=== PATIENT | male | born 1970 | race Caucasian/White ===

== ENCOUNTER 2022-08-20 20:59 | Inpatient (IN) | payer MEDICAID, SELFPAY ==
[2022-08-20 20:59] VITALS: BP 153/93; PULSE 83; RESP 15; TEMP 36.2; O2SAT 100; BMI 26.2
--- NOTE | 2022-08-20 21:19 | EX.ED.SAOD ---
HPI History of Present Illness Chief Complaint: Substance Abuse Informant: patient Narrative Narrative: Patient seeking detox from alcohol, opiates which she smokes or snorts, and anything else that he can stop such as methamphetamine which he also uses frequently 2. He uses about a liter of alcohol/bourbon per day, he is also using a gram or so of heroin/fentanyl what ever is in it per day, the last use was this morning he feels like he is with withdrawal with cramping in his abdomen nausea and anxiety. [facility] Medical History Alcohol abuse Anxiety Depression GERD (gastroesophageal reflux disease) Hepatitis Hypertension Migraines Smoker Substance abuse Home Medications Blood Pressure Med 08/20/22 [History Last Taken Unknown] buprenorphine HCl 8 mg sublingual tablet 8 mg sublingual BID 08/20/22 [History Last Taken Unknown] quetiapine 25 mg tablet (Seroquel) 25 mg PO QHS 08/20/22 [History Last Taken Unknown] Allergy/AdvReac Type Severity Reaction Status Date / Time hydromorphone [From Dilaudid] Allergy Hives Verified 08/20/22 21:02 Surgical History (Updated 08/20/22 @ 21:09 by Clemencia Driscoll) H/O left wrist surgery History of appendectomy Social History Smoking Status: Current every day smoker tobacco type: cigarettes ROS ROS ED Constitutional Constitutional ED: Denies chills or fever(s) Eyes Eyes: Denies change in vision or diplopia ENT ENT ED: Denies rhinorrhea or sore throat Cardiovascular Cardiovascular: Denies chest pain or palpitations Respiratory/Chest Respiratory/Chest: Denies cough or dyspnea Gastrointestinal Gastrointestinal: Reports abdominal pain and nausea; Denies diarrhea or vomiting Genitourinary Genitourinary ED: Denies dysuria or hematuria Musculoskeletal Musculoskeletal: Denies back pain or neck pain Integumentary Denies abscess or rash Neurologic Neurologic: Denies headache(s), paresthesias or weakness Psychiatric Psychiatric: Reports anxiety; Denies suicidal thoughts EXAM Physical Exam Const Vital Signs: 08/20/22 20:59 Temperature 97.1 F L Temperature Source Temporal Pulse Rate 83 Respiratory Rate 15 Blood Pressure 153/93 H Blood Pressure Mean 113 Pulse Ox 100 Oxygen Delivery Method Room Air Positive well nourished and well developed Constitutional Narrative: A little anxious but otherwise well-appearing General Appearance ED: well developed and NAD HEENT Reports moist mucous membranes normocephalic and atraumatic Eyes PERRL and EOMs intact bilaterally Neck full ROM and supple Resp normal respiratory effort and clear to auscultation bilaterally Cardio regular rate, regular rhythm and no murmurs GI non-tender and non-distended Auscultation: normoactive bowel sounds Palpation: soft Back/Spine no CVA tenderness General Back: other FROM Extremity normal to inspection General Extremety ED: Negative for edema, pulses abnormal or tenderness General Extremity: Negative for edema or pulses abnormal Neuro oriented x3, CN's II-XII intact bilaterally and no sensory deficits noted Sensorium / Orientation: awake and alert Motor Exam: strength 5/5 throughout Skin no rashes or lesions noted and no wounds MDM MDM MDM Narrative Medical decision making narrative: Patient given Zofran and phenobarbital for his withdrawal symptoms, labs noted, will discuss with hospitalist for detox admission. Lab Data Attestation: I reviewed the patient's lab results. Labs: Laboratory Results - last 24 hr 08/20/22 08/20/22 08/20/22 21:32 21:32 21:32 WBC 8.0 RBC 4.05 L Hgb 13.1 Hct 39.9 L MCV 98.5 H MCH 32.3 H MCHC 32.8 RDW Std Deviation 47.0 H RDW Coeff of Isabella 13.0 Plt Count 213 MPV 9.9 Immature Gran % (Auto) 0.100 Neut % (Auto) 50.4 Lymph % (Auto) 37.1 [place] % (Auto) 6.7 Eos % (Auto) 4.6 Baso % (Auto) 1.1 H Absolute Neuts (auto) 4.1 Absolute Lymphs (auto) 2.98 Nucleated RBC % 0 PT 12.7 INR 1.0 Sodium 139 Potassium 3.5 Chloride 105 Carbon Dioxide 28.0 Anion Gap 6 BUN 25 H Creatinine 0.84 Estim Creat Clear Calc 98.39 Est GFR (MDRD) Af Amer 123 Est GFR (MDRD) Non-Af 102 BUN/Creatinine Ratio 29.8 H Glucose 87 Calcium 9.0 Total Bilirubin 0.30 AST 72 H ALT 115 H Alkaline Phosphatase 116 Total Protein 7.3 Albumin 3.7 Globulin 3.6 Albumin/Globulin Ratio 1.0 Urine Opiates Screen Urine Methadone Screen Ur Barbiturates Screen Ur Phencyclidine Scrn Ur Amphetamines Screen MDMA (Ecstasy) Screen U Benzodiazepines Scrn Urine Cocaine Screen U Cannabinoids Screen Ur Drug Screen Comment Ethyl Alcohol 08/20/22 08/20/22 21:32 21:32 WBC RBC Hgb Hct MCV MCH MCHC RDW Std Deviation RDW Coeff of Isabella Plt Count MPV Immature Gran % (Auto) Neut % (Auto) Lymph % (Auto) [place] % (Auto) Eos % (Auto) Baso % (Auto) Absolute Neuts (auto) Absolute Lymphs (auto) Nucleated RBC % PT INR Sodium Potassium Chloride Carbon Dioxide Anion Gap BUN Creatinine Estim Creat Clear Calc Est GFR (MDRD) Af Amer Est GFR (MDRD) Non-Af BUN/Creatinine Ratio Glucose Calcium Total Bilirubin AST ALT Alkaline Phosphatase Total Protein Albumin Globulin Albumin/Globulin Ratio Urine Opiates Screen NEGATIVE Urine Methadone Screen NEGATIVE Ur Barbiturates Screen NEGATIVE Ur Phencyclidine Scrn NEGATIVE Ur Amphetamines Screen POSITIVE H MDMA (Ecstasy) Screen NEGATIVE U Benzodiazepines Scrn NEGATIVE Urine Cocaine Screen NEGATIVE U Cannabinoids Screen POSITIVE H Ur Drug Screen Comment Ethyl Alcohol 48.0 Management Discussion w/another healthcare provider: Hospitalist Discharge Plan Dx/Rx/DC Orders Clinical Impression: Opiate dependence, Alcohol dependence, Opiate withdrawal, Polysubstance abuse Disposition Disposition: Acute Care Hospital [facility]
[2022-08-20] MEDS: Ondansetron 4 MG/2 ML Vial IV (21:39)
[2022-08-20 21:45] LABS: Absolute Lymphocyte Count 2.98 X10^3/uL (0.83-4.51); Absolute Neutrophil Count 4.1 X10^3/uL (2.0-7.7); Basophil# 0.09 X10^3/uL; Basophil% 1.1 % (0-1); Eosinophil# 0.37 X10^3/uL; Eosinophils% 4.6 % (0-5); Hematocrit 39.9 % (40-54); Hemoglobin 13.1 g/dL (13.0-16.5); Lymphocyte # 2.98 X10^3/ul (0.83-4.51); Lymphocyte % 37.1 % (19-41); Mean Corp Hgb Conc 32.8 g/dL (32-36); Mean Corpuscular Hgb 32.3 pg (27.0-32.0); Mean Corpuscular Volume 98.5 fL (80-94); Mean Platelet Vol. 9.9 fl (6.2-12.0); Monocyte# 0.54 X10^3/uL; Monocyte% 6.7 % (0-10); NRBC Flagged by Analyzer 0 % (0-5); Neutrophil # 4.05 X10^3/uL (2.7-7.7); Neutrophil % 50.4 % (47-70); Platelet Count 213 K/mm3 (150-450); Red Blood Count 4.05 M/mm3 (4.6-6.2)
[2022-08-20 21:52] LABS: Prothrombin Time (Protime)PT. 12.7 SECONDS (11.7-14.9)
[2022-08-20 22:00] LABS: AST(SGOT) 72 U/L (15-37); Alanine Aminotransfer ALT/SGPT 115 U/L (16-61); Albumin, Serum 3.7 g/dL (3.2-5.0); Alkaline Phosphatase 116 U/L (45-117); Anion Gap 6 (5-15); BUN 25 mg/dL (7-18); BUN/Creat Ratio 29.8 RATIO (10-20); Chloride 105 mmol/L (98-107); Creatinine, Serum 0.84 mg/dL (0.70-1.30); EST Glomerular Filtration Rate 102 mL/min (>60); Est Glom Filt Rate - Afr Amer 123 mL/min (>60); Estimated Creatinine Clearance 98.39 ml/min; Globulin 3.6 g/dL (2.2-4.2); Glucose 87 mg/dL (74-106); Potassium 3.5 mmol/L (3.5-5.1); Protein, Total 7.3 g/dL (6.4-8.2); Sodium Level 139 mmol/L (136-145)
[2022-08-20 22:06] LABS: Amphetamine Urine VISTA POSITIVE (<1000 ng/mL); Barbiturate Urine VISTA NEGATIVE (< 200 ng/mL); Benzodiazepine Urine VISTA NEGATIVE (< 200 ng/mL); Cocaine Urine VISTA NEGATIVE (< 300 ng/mL); Ecstacy Urine VISTA NEGATIVE (< 500 ng/mL); Methadone Urine VISTA NEGATIVE (< 300 ng/mL); PCP Urine VISTA NEGATIVE (< 25 ng/mL); THC Urine VISTA POSITIVE (< 50 ng/mL); Vista UDS pH Range 6
[2022-08-20 22:31] VITALS: BP 148/90; PULSE 78; RESP 18; TEMP 36.2; O2SAT 100
--- NOTE | 2022-08-20 22:31 | PCM.HP.STD ---
HPI - General General Date of Admission: 08/20/22 Date of Service: 08/20/22 Chief Complaint: Desire for detoxification HPI Narrative DEJA HOLDEN, is a 52 M with a significant history of tobacco abuse and multi substance abuse who presents to the emergency department for help with detoxification. Patient has been using multiple substances. Alcohol use: Reportedly he has been using a liter of bourbon daily. The last time he used was about 5 before presentation. Reportedly he has been using for many years; more than 10 years. Opioid abuse: Reportedly he has been smoking fentanyl. He has been smoking fentanyl for a long time. He smokes about 1 g/day. Last time he used was about 5 days before presentation. Methamphetamine: He has been smoking with methamphetamine reportedly for him a long time. He smokes about half grams per day. And again last time he used methamphetamine was about 5 before presentation. Tobacco abuse: He smokes about a pack per day of cigarettes. He reports withdrawal symptoms of feeling cold; abdominal pain; and restless legs. He denies any nausea or vomiting. Patient reports not been able to obtain his right hand. He attributes to lying wrongly on his right hand [facility] Medical History Alcohol abuse Anxiety Depression GERD (gastroesophageal reflux disease) Hepatitis Hypertension Migraines Smoker Substance abuse Home Medications Blood Pressure Med 08/20/22 [History Last Taken Unknown] buprenorphine HCl 8 mg sublingual tablet 8 mg sublingual BID 08/20/22 [History Last Taken Unknown] quetiapine 25 mg tablet (Seroquel) 25 mg PO QHS 08/20/22 [History Last Taken Unknown] Allergy/AdvReac Type Severity Reaction Status Date / Time hydromorphone [From Dilaudid] Allergy Hives Verified 08/20/22 21:02 Family History Other Cancer Surgical History H/O left wrist surgery History of appendectomy Social History Smoking Status: Current every day smoker tobacco type: cigarettes ROS ROS Narrative Pertinent positives and pertinent negatives as noted in HPI. All other systems were reviewed and are negative Vital Signs Vital Signs Vital Signs: 08/20/22 20:59 Temperature 97.1 F L Temperature Source Temporal Pulse Rate 83 Respiratory Rate 15 Blood Pressure 153/93 H Blood Pressure Mean 113 Pulse Ox 100 Oxygen Delivery Method Room Air Weight Weight: 78.199 kg Body Mass Index (BMI) 26.2 Physical Exam Narrative Physical exam: General: Well-nourished, well-developed. Head: Normocephalic, atraumatic, no tenderness Eyes: Vision is grossly intact. EOMI ENT, no trauma, moist mucous membranes, no rhinorrhea Neck: Nontender, No thyromegaly. CVS: Regular rate and rhythm. S1-S2 present. No murmur, gallop or rub. Respiratory : clear to auscultation bilaterally, chest wall nontender Abdomen: Soft, nontender, nondistended, normal bowel sounds, no masses : Deferred Back: Nontender, no CVA tenderness, no midline spinal tenderness, deformities, step-offs Extremities: Unable to fully extend right that he attributes to pain. Able to fully extend his left pound Skin: Normal color, no trauma, abrasions Neuro: Alert, oriented, cranial nerves II through XII grossly intact. Psychiatry: Normal mood. Normal affect. Not depressed. Not anxious. Results Lab / Micro Data Result Diagrams: 08/20/22 21:32 08/20/22 21:32 Labs: Laboratory Results - last 24 hr 08/20/22 21:32: WBC 8.0, RBC 4.05 L, Hgb 13.1, Hct 39.9 L, MCV 98.5 H, MCH 32.3 H, MCHC 32.8, RDW Std Deviation 47.0 H, RDW Coeff of Isabella 13.0, Plt Count 213, MPV 9.9, Immature Gran % (Auto) 0.100, Neut % (Auto) 50.4, Lymph % (Auto) 37.1, [place] % (Auto) 6.7, Eos % (Auto) 4.6, Baso % (Auto) 1.1 H, Absolute Neuts (auto) 4.1, Absolute Lymphs (auto) 2.98, Nucleated RBC % 0 08/20/22 21:32: PT 12.7, INR 1.0 08/20/22 21:32: Sodium 139, Potassium 3.5, Chloride 105, Carbon Dioxide 28.0, Anion Gap 6, BUN 25 H, Creatinine 0.84, Estim Creat Clear Calc 98.39, Est GFR (MDRD) Af Amer 123, Est GFR (MDRD) Non-Af 102, BUN/Creatinine Ratio 29.8 H, Glucose 87, Calcium 9.0, Total Bilirubin 0.30, AST 72 H, ALT 115 H, Alkaline Phosphatase 116, Total Protein 7.3, Albumin 3.7, Globulin 3.6, Albumin/Globulin Ratio 1.0 08/20/22 21:32: Ethyl Alcohol 48.0 08/20/22 21:32: Urine Opiates Screen NEGATIVE, Urine Methadone Screen NEGATIVE, Ur Barbiturates Screen NEGATIVE, Ur Phencyclidine Scrn NEGATIVE, Ur Amphetamines Screen POSITIVE H, MDMA (Ecstasy) Screen NEGATIVE, U Benzodiazepines Scrn NEGATIVE, Urine Cocaine Screen NEGATIVE, U Cannabinoids Screen POSITIVE H, Ur Drug Screen Comment Assessment & Plan Assessment/Plan (1) Opiate dependence: (2) Alcohol dependence: (3) Polysubstance abuse: PLAN: Plan Alcohol dependence and desire for detoxification Patient be started on phenobarbital and other adjunctive medications: Gabapentin as needed; dicyclomine as needed; Vistaril as needed; Imodium as needed; trazodone as needed; Zofran as needed; scheduled thiamine; and schedule folic acid. Monitor CIWA score Opioid dependence and withdrawal Patient be started on Subutex and other adjunctive medications: Gabapentin as needed; dicyclomine as needed; Vistaril as needed; methocarbamol as needed; clonidine as needed; Imodium as needed; trazodone as needed and Zofran as needed. Monitor COWS and CINA score Methamphetamine abuse Urine drug screen is positive for amphetamines and cannabinoids Counseled Tobacco abuse Counseled Declines prescribed. DVT prophylaxis Low risk Encourage to ambulate Charges/Coding Visit Charges Inpatient E&M: 66227 Init Hosp L2
[2022-08-20] MEDS: Phenobarbital Sodium 130 MG/ML Vial 260 MG IV (22:46)
[2022-08-20 23:49] VITALS: BMI 23.7
[2022-08-21] VITALS (21 sets, daily range): BP systolic 75–164; BP diastolic 57–108; PULSE 56–88; RESP 15–22; TEMP 36.1–37.3; O2SAT 94–100; BMI 23.6
[2022-08-21] MEDS: QUEtiapine 25 MG Tablet PO ×3 (01:15→20:54)
[2022-08-21] MEDS: Phenobarbital 32.4 MG Tablet 64.8 MG PO ×6 (01:15→20:54)
[2022-08-21] MEDS: Buprenorphine HCl 2 MG TAB.SUBL SL ×3 (04:26→18:15)
[2022-08-21] MEDS: hydrOXYzine PAM 25 MG Capsule 50 MG PO (04:28)
[2022-08-21] MEDS: Gabapentin 300 MG Capsule PO (06:15)
[2022-08-21] MEDS: cloNIDine HCl 0.1 MG Tablet PO (06:15)
[2022-08-21] MEDS: Methocarbamol 750 MG Tablet 1500 MG PO (06:15)
[2022-08-21] MEDS: LORazepam 2 MG/ML Syringe IV ×4 (06:40→12:43)
[2022-08-21] MEDS: 0.9% Saline Lock 10 ML Syringe IV ×4 (06:40→10:38)
--- NOTE | 2022-08-21 07:18 | PCM.PN.HOSP ---
Reason for Visit Reason for Visit: Acute Alcohol Withdrawal/Acute Opiate Withdrawal Subjective Subjective Mr. Hi is a 52-year-old white male who presented to the emergency department [facility] on 08/20/2022 desiring detox from alcohol and opiates. Per documentation, he has been using approximately 1 L of bourbon a day. He has been drinking for more than 10 years. With regards to his opiate abuse, he has been smoking fentanyl. He indicated he been doing this for a long time and smokes about 1 g a day. Patient also admits to methamphetamine use and tobacco abuse. Symptoms at presentation included feeling cold, abdominal pain, and restlessness. He denies any nausea vomiting or diarrhea. Is extremely restless and agitated. He is alert and oriented x3 however his speech is somewhat garbled. He was able to do simple computations such as 4+4 accurately at the time of my evaluation. Unfortunately he has remained very restless despite as needed Ativan using and dosing of his phenobarb and will require transfer to the ICU for Precedex drip. Objective Data Objective Data Vital Signs: Vital Signs Temp Pulse Resp BP Pulse Ox O2 Del Method 97.5 F L 56 L 16 139/90 H 100 Room Air 08/21/22 04:34 08/21/22 04:34 08/21/22 04:34 08/21/22 04:34 08/21/22 04:34 08/21/22 04:34 Oxygen Delivery Method Room Air Weight: 70.6 kg Body Mass Index (BMI) 23.6 Intake & Output: Intake and Output for Last 24 Hours 08/19/22 08/20/22 08/21/22 23:59 23:59 23:59 Intake Total 400 / 400 Balance 400 / 400 Lab / Micro Data Result Diagrams: 08/20/22 21:32 08/20/22 21:32 Labs: Laboratory Results - last 24 hr 08/20/22 21:32: WBC 8.0, RBC 4.05 L, Hgb 13.1, Hct 39.9 L, MCV 98.5 H, MCH 32.3 H, MCHC 32.8, RDW Std Deviation 47.0 H, RDW Coeff of Isabella 13.0, Plt Count 213, MPV 9.9, Immature Gran % (Auto) 0.100, Neut % (Auto) 50.4, Lymph % (Auto) 37.1, [place] % (Auto) 6.7, Eos % (Auto) 4.6, Baso % (Auto) 1.1 H, Absolute Neuts (auto) 4.1, Absolute Lymphs (auto) 2.98, Nucleated RBC % 0 08/20/22 21:32: PT 12.7, INR 1.0 08/20/22 21:32: Sodium 139, Potassium 3.5, Chloride 105, Carbon Dioxide 28.0, Anion Gap 6, BUN 25 H, Creatinine 0.84, Estim Creat Clear Calc 98.39, Est GFR (MDRD) Af Amer 123, Est GFR (MDRD) Non-Af 102, BUN/Creatinine Ratio 29.8 H, Glucose 87, Calcium 9.0, Total Bilirubin 0.30, AST 72 H, ALT 115 H, Alkaline Phosphatase 116, Total Protein 7.3, Albumin 3.7, Globulin 3.6, Albumin/Globulin Ratio 1.0 08/20/22 21:32: Ethyl Alcohol 48.0 08/20/22 21:32: Urine Opiates Screen NEGATIVE, Urine Methadone Screen NEGATIVE, Ur Barbiturates Screen NEGATIVE, Ur Phencyclidine Scrn NEGATIVE, Ur Amphetamines Screen POSITIVE H, MDMA (Ecstasy) Screen NEGATIVE, U Benzodiazepines Scrn NEGATIVE, Urine Cocaine Screen NEGATIVE, U Cannabinoids Screen POSITIVE H, Ur Drug Screen Comment Physical Exam Const alert, oriented x3, average body habitus and well nourished; Negative for no apparent distress or healthy appearing Constitutional Narrative: Very agitated and restless, he has pulled his IV out and there is dried blood on the bed, appears much older than stated age, nontoxic HEENT head/scalp atraumatic and moist oral mucous membranes HEENT Narrative: Condition is poor, Mallampati is 2, no thrush Head and Scalp: normocephalic Resp normal respiratory effort, no retractions, no use of accessory muscles and clear to auscultation bilaterally Resp Narrative: Diminished but clear Auscultation: Negative for rales, rhonchi or wheezes Cardio regular rate, regular rhythm, S1 normal heart sound, S2 normal heart sound, no murmurs, no rub, no gallops and no clicks GI normal to inspection, nondistended, normoactive bowel sounds, soft to palpation and non-tender Extremity no clubbing, cyanosis or edema Extremity Narrative: Pedal pulses are 2+ Neuro oriented x3, moves all extremities and no focal motor deficits Neuro Narrative: Speech is intelligible but garbled Speech: Negative for speech normal Psych Psych Narrative: Agitated, restless Assessment & Plan Assessment/Plan (1) Opiate dependence: (2) Alcohol dependence: (3) Opiate withdrawal: (4) Alcoholic hepatitis: PLAN: Plan Acute alcohol withdrawal -Continue phenobarbital taper -Transferred to ICU for Precedex -Thiamine and folate -Supportive medications for symptom management -CIWA with as needed Ativan -180 consultation Acute opiate withdrawal -Patient smokes fentanyl -Subutex taper to initiate once COWS appropriate -Continue supportive medications as ordered for symptom management -180 consultation Polysubstance abuse -Tox screen was positive for methamphetamines, cannabinoids, and his alcohol level was 48 on presentation. -Recommend cessation -180 consultation Alcoholic hepatitis -Transaminase elevation present on admission with ALT 115 and AST 72 -Not quite alcoholic pattern but will trend -If does not trend down may need to further investigate -Repeat CMP in a.m. Tobacco abuse -Nicotine patch -Recommend cessation DVT prophylaxis -Low risk -Encourage early and frequent ambulation CODE STATUS Full code Charges/Coding Visit Charges Inpatient E&M: 60890 Subs Hosp L2
[2022-08-21] MEDS: Thiamine Hydrochloride 100 MG Tablet PO (08:40)
[2022-08-21] MEDS: Folic Acid 1 MG Tablet PO (08:40)
[2022-08-21] MEDS: Lisinopril 10 MG Tablet PO (08:41)
[2022-08-21] MEDS: hydroCHLOROthiazide 12.5mg 12.5 MG PO (08:42)
--- NOTE | 2022-08-21 10:48 | NURSING ---
lighthouse keeper anitra informed of Dr. Alexandra's response will send to icu for precedex.
--- NOTE | 2022-08-21 11:00 | NURSING ---
primary RN informed of bed assigment in icu.
--- NOTE | 2022-08-21 11:40 | NURSING ---
REPORT CALLED TO AJMIE IN ICU. PT NOW TRANSPORTING TO ICU4
[2022-08-21 12:27] LABS: HIV - WCH Non-Reactive (Nonreactive)
[2022-08-21 12:28] LABS: Hepatitis C Antibody REACTIVE (Nonreactive)
[2022-08-22] VITALS (25 sets, daily range): BP systolic 73–115; BP diastolic 56–76; PULSE 57–77; RESP 12–19; TEMP 36.2–37.3; O2SAT 92–100; BMI 22.5
[2022-08-22] MEDS: Phenobarbital 32.4 MG Tablet 64.8 MG PO ×7 (00:26→23:57)
[2022-08-22] MEDS: Buprenorphine HCl 2 MG TAB.SUBL SL ×3 (03:55→18:24)
[2022-08-22 04:23] LABS: AST(SGOT) 68 U/L (15-37); Alanine Aminotransfer ALT/SGPT 114 U/L (16-61); Albumin, Serum 3.7 g/dL (3.2-5.0); Alkaline Phosphatase 120 U/L (45-117); Anion Gap 7 (5-15); BUN 26 mg/dL (7-18); BUN/Creat Ratio 27.9 RATIO (10-20); Calcium,Total 9.3 mg/dL (8.5-10.1); Chloride 103 mmol/L (98-107); Creatinine, Serum 0.93 mg/dL (0.70-1.30); EST Glomerular Filtration Rate 90 mL/min (>60); Est Glom Filt Rate - Afr Amer 109 mL/min (>60); Estimated Creatinine Clearance 88.87 ml/min; Globulin 3.7 g/dL (2.2-4.2); Glucose 103 mg/dL (74-106); Potassium 3.9 mmol/L (3.5-5.1); Protein, Total 7.4 g/dL (6.4-8.2); Sodium Level 137 mmol/L (136-145)
[2022-08-22] MEDS: Thiamine Hydrochloride 100 MG Tablet PO (08:03)
[2022-08-22] MEDS: Enoxaparin 40 MG/0.4 ML Syringe SC (08:03)
[2022-08-22] MEDS: Folic Acid 1 MG Tablet PO (08:04)
--- NOTE | 2022-08-22 13:14 | PCM.PN.HOSP ---
Reason for Visit Reason for Visit: Alcohol/opiate detox Subjective Subjective Mental status is better. No significant issues overnight. Precedex has been weaned as patient was somewhat hypotensive through the night related to the Precedex use. Patient is much less restless and more appropriate but still sleepy. We will try to wean Precedex today. Objective Data Objective Data Vital Signs: Vital Signs Temp Pulse Resp BP Pulse Ox O2 Del Method 97.3 F L 63 16 90/64 99 Room Air 08/22/22 12:00 08/22/22 12:00 08/22/22 12:00 08/22/22 12:00 08/22/22 12:00 08/22/22 12:00 Oxygen Delivery Method Room Air Weight: 67.4 kg Body Mass Index (BMI) 22.5 Intake & Output: Intake and Output for Last 24 Hours 08/20/22 08/21/22 08/22/22 23:59 23:59 23:59 Intake Total 677.70 / 683.00 259.33 / 259.33 Output Total 700 / 700 325 / 325 Balance -22.30 / -17.00 -65.67 / -65.67 Lab / Micro Data Result Diagrams: 08/20/22 21:32 08/22/22 04:00 Labs: Laboratory Results - last 24 hr 08/22/22 04:00: Sodium 137, Potassium 3.9, Chloride 103, Carbon Dioxide 27.0, Anion Gap 7, BUN 26 H, Creatinine 0.93, Estim Creat Clear Calc 88.87, Est GFR (MDRD) Af Amer 109, Est GFR (MDRD) Non-Af 90, BUN/Creatinine Ratio 27.9 H, Glucose 103, Calcium 9.3, Total Bilirubin 0.70, AST 68 H, ALT 114 H, Alkaline Phosphatase 120 H, Total Protein 7.4, Albumin 3.7, Globulin 3.7, Albumin/Globulin Ratio 1.0 08/22/22 06:50: Hepatitis C Antibody Cancelled Physical Exam Const alert, oriented x3, average body habitus and well nourished; Negative for no apparent distress or healthy appearing Constitutional Narrative: Middle-aged, white male, sitting up in bed, appears comfortable and nontoxic, aide at the bedside helping him eat breakfast, no restlessness or agitation, patient is somewhat sleepy but alert and oriented to self, place but not time as of yet HEENT head/scalp atraumatic and moist oral mucous membranes HEENT Narrative: Dentition is poor, Mallampati is 2, no thrush Resp normal respiratory effort, no retractions, no use of accessory muscles and clear to auscultation bilaterally Resp Narrative: Diminished but clear Auscultation: Negative for rales, rhonchi or wheezes Cardio regular rate, regular rhythm, S1 normal heart sound, S2 normal heart sound, no murmurs, no rub, no gallops and no clicks GI normal to inspection, nondistended, normoactive bowel sounds, soft to palpation and non-tender Extremity no clubbing, cyanosis or edema Extremity Narrative: Pedal pulses are 2+ Neuro oriented x3, moves all extremities and no focal motor deficits Neuro Narrative: Speech is much more clear today Speech: Negative for speech normal Psych Psych Narrative: Calm somewhat sleepy at this time, no agitation or restlessness Assessment & Plan Assessment/Plan (1) Opiate dependence: (2) Alcohol dependence: (3) Opiate withdrawal: (4) Alcoholic hepatitis: PLAN: Plan Acute alcohol withdrawal -Continue phenobarbital taper -Improved today--> wean Precedex -If able to wean Precedex and patient remained stable will transfer out of ICU tomorrow -Thiamine and folate -Supportive medications for symptom management -CIWA with as needed Ativan -180 consultation pending Acute opiate withdrawal -Patient smokes fentanyl -Subutex taper to initiate once COWS appropriate -Continue supportive medications as ordered for symptom management -180 consultation pending Polysubstance abuse -Tox screen was positive for methamphetamines, cannabinoids, and his alcohol level was 48 on presentation. -Recommend cessation -180 consultation Chronic hepatitis C infection -Transaminase elevation present on admission with ALT 115 and AST 72 -Not consistent with alcoholic pattern -Hepatitis C antibody is positive so I do suspect chronic infection -Right upper ultrasound is pending -Repeat CMP in a.m. Tobacco abuse -Nicotine patch -Recommend cessation DVT prophylaxis -Low risk -Encourage early and frequent ambulation CODE STATUS Full code Charges/Coding Visit Charges Inpatient E&M: 00743 Subs Hosp L2
[2022-08-22] MEDS: hydrOXYzine PAM 25 MG Capsule 50 MG PO (14:21)
[2022-08-22] MEDS: Gabapentin 300 MG Capsule PO (14:21)
[2022-08-22] MEDS: Ensure Plus High Protein 120 ML LIQUID PO (16:40)
[2022-08-23] VITALS (13 sets, daily range): BP systolic 92–118; BP diastolic 55–82; PULSE 62–94; RESP 12–20; TEMP 36.5–36.6; O2SAT 96–100; BMI 22.7
[2022-08-23] MEDS: Buprenorphine HCl 2 MG TAB.SUBL SL (03:58)
[2022-08-23] MEDS: Phenobarbital 32.4 MG Tablet 64.8 MG PO ×2 (03:58→08:11)
--- NOTE | 2022-08-23 07:20 | PCM.PN.HOSP ---
Reason for Visit Reason for Visit: Diagnoses Alcohol dependence, uncomplicated (08/20/22) Opioid dependence, uncomplicated (08/20/22) Opioid use, unspecified with withdrawal (08/20/22) Other psychoactive substance abuse, uncomplicated (08/20/22) Alcoholic hepatitis without ascites (08/20/22) Subjective Subjective Feels well. Wants to go home. Objective Data Objective Data Vital Signs: Vital Signs Temp Pulse Resp BP Pulse Ox O2 Del Method 36.5 C L 71 14 118/82 H 97 Room Air 08/23/22 04:00 08/23/22 07:00 08/23/22 07:00 08/23/22 07:00 08/23/22 07:00 08/23/22 07:00 Oxygen Delivery Method Room Air Weight: 67.8 kg Body Mass Index (BMI) 22.7 Intake & Output: Intake and Output for Last 24 Hours 08/21/22 08/22/22 08/23/22 23:59 23:59 23:59 Intake Total 677.70 / 683.00 499.33 / 499.33 0 / 0 Output Total 700 / 700 875 / 875 300 / 300 Balance -22.30 / -17.00 -375.67 / -375.67 -300 / -300 Lab / Micro Data Result Diagrams: 08/20/22 21:32 08/22/22 04:00 Labs: Laboratory Results - last 24 hr 08/22/22 06:50: Hepatitis C Antibody Cancelled Physical Exam Const alert and no apparent distress HEENT head/scalp atraumatic HEENT Narrative: poor dentition Assessment & Plan Assessment/Plan (1) Alcohol withdrawal delirium, acute, hyperactive: PLAN: Continue phenobarbital taper Became worse and started on dexmedetomidine gtt, which has since been weaned off since the Thiamine and folate Supportive medications for symptom management CIWA with as needed Ativan 180 consultation pending patient to follow up with [facility]. (2) Opiate withdrawal: PLAN: Patient smokes fentanyl Subutex taper to initiate once COWS appropriate Continue supportive medications as ordered for symptom management 180 consultation pending PLAN: Plan Chronic complication conditions: Polysubstance abuse-Tox screen was positive for methamphetamines, cannabinoids, and his alcohol level was 48 on presentation.-Recommend cessation-180 consultation Chronic hepatitis C infection-Transaminase elevation present on admission with ALT 115 and AST 72-Hepatitis C antibody is positive so I do suspect chronic infection-Follow up as outpt. Tobacco abuse-Nicotine patch-Recommend cessation DVT prophylaxis-Low risk-Encourage early and frequent ambulation CODE STATUS Full code
[2022-08-23] MEDS: Thiamine Hydrochloride 100 MG Tablet PO (08:11)
[2022-08-23] MEDS: Folic Acid 1 MG Tablet PO (08:11)
[2022-08-23] MEDS: Enoxaparin 40 MG/0.4 ML Syringe SC (08:12)
--- NOTE | 2022-08-23 10:25 | ADDICTION ---
This literary writer met with PT to conduct ASAM, MSE, AUDIT assessments and to plan for d/c. PT A+Ox4 and participated actively. All assessments completed and placed in PT's chart. PT plans to f/u with [facility] for follow-up treatment services. PT will be transported by [facility] post d/c from [facility].
--- NOTE | 2022-08-23 11:12 | DCINST_ITS ---
Discharge Instructions Diet Discharge Diet: No restrictions Follow Up Care Test Results: Test results from this visit will be discussed in further detail at your follow- up appointment, if applicable. Discharge Plan Admission Admit Date/Time: 08/20/22 22:18 Primary Reason for Your Visit: alcohol and opiate withdrawal. Attending Provider: Victorino Owens Primary Care Provider: CHRISTINA BOLTON Consulting Providers: Noah Peguero ; Sary Alexandra Instructions Additional Instructions / Restrictions: You are very sick from alcohol withdrawal and required management in the intensive care unit. It is very important that you do follow-up with your outpatient counseling and treatment to maintain sobriety from alcohol and opiates. Discharge Orders/Prescriptions Prescriptions: Continued quetiapine [Seroquel] 25 mg Tablet 25 mg PO QHS lisinopril-hydrochlorothiazide 10-12.5 mg tablet 1 tab PO DAILY Discontinued buprenorphine HCl [Subutex] 8 mg Tablet, Sublingual 8 mg SUBLINGUAL BID gabapentin 300 mg capsule 300 mg PO DAILY Label Comments: TAKE 1 CAPSULE BY MOUTH THREE TIMES DAILY Referrals / Follow Up: CHRISTINA BOLTON [Other] Disposition Disposition (needs filled in before D/C Order can be placed): Home, Self Care
--- NOTE | 2022-08-23 11:15 | PCM.DC.SUM ---
Providers Date of Admission: 08/20/22 Primary Care Physician: CHRISTINA BOLTON Reason For Visit: DESIRE FOR OPIOID DETOXIFICATION AND ALCOHOL DETOX Diagnosis Discharge Diagnosis (1) Alcohol withdrawal delirium, acute, hyperactive: Status: Acute Code(s): F10.931 - Alcohol use, unspecified with withdrawal delirium Plan: Continue phenobarbital taper Became worse and started on dexmedetomidine gtt, which has since been weaned off since the Thiamine and folate Supportive medications for symptom management CIWA with as needed Ativan 180 consultation pending patient to follow up with [facility]. (2) Opiate withdrawal: Status: Acute Code(s): F11.93 - Opioid use, unspecified with withdrawal Plan: Patient smokes fentanyl Subutex taper to initiate once COWS appropriate Continue supportive medications as ordered for symptom management 180 consultation pending Plan Chronic complication conditions: Polysubstance abuse-Tox screen was positive for methamphetamines, cannabinoids, and his alcohol level was 48 on presentation.-Recommend cessation-180 consultation Chronic hepatitis C infection-Transaminase elevation present on admission with ALT 115 and AST 72-Hepatitis C antibody is positive so I do suspect chronic infection-Follow up as outpt. Tobacco abuse-Nicotine patch-Recommend cessation DVT prophylaxis-Low risk-Encourage early and frequent ambulation CODE STATUS Full code Medications at Discharge Home Medications lisinopril 10 mg-hydrochlorothiazide 12.5 mg tablet 1 tab PO DAILY BP 08/20/22 quetiapine 25 mg tablet (Seroquel) 25 mg PO QHS 08/20/22 Hospital Course Operations None Procedures None Summary of Care Provided Minutes Spent on Discharge: 32 Hospital Course: Patient presents with acute alcohol and opiate withdrawal. Patient's condition deteriorated and patient started going through delirium tremens requiring a Precedex drip. That was eventually tapered off on the and patient has remained stable. Patient will be following up with [facility]. Weight / BMI Weight Weight: 67.8 kg Body Mass Index (BMI) 22.7 ABG / Lab / Microbiology Data Result Diagrams: 08/20/22 21:32 08/22/22 04:00 D/C Instructions Discharge Diet: No restrictions Meaningful Use Info Meaningful Use Diagnoses (Choose all that apply): None applicable Discharge Plan Admission Admit Date/Time: 08/20/22 22:18 Primary Reason for Your Visit: alcohol and opiate withdrawal. Attending Provider: Victorino Owens Primary Care Provider: CHRISTINA BOLTON Consulting Providers: Noah Peguero ; Sary Alexandra Instructions Additional Instructions / Restrictions: You are very sick from alcohol withdrawal and required management in the intensive care unit. It is very important that you do follow-up with your outpatient counseling and treatment to maintain sobriety from alcohol and opiates. Discharge Orders/Prescriptions Prescriptions: Continued quetiapine [Seroquel] 25 mg Tablet 25 mg PO QHS lisinopril-hydrochlorothiazide 10-12.5 mg tablet 1 tab PO DAILY Discontinued buprenorphine HCl [Subutex] 8 mg Tablet, Sublingual 8 mg SUBLINGUAL BID gabapentin 300 mg capsule 300 mg PO DAILY Label Comments: TAKE 1 CAPSULE BY MOUTH THREE TIMES DAILY Referrals / Follow Up: CHRISTINA BOLTON [Other] Disposition Disposition (needs filled in before D/C Order can be placed): Home, Self Care Charges/Coding Visit Charges Inpatient E&M: 77473 Disch Hosp >30min
== END 2022-08-23 11:41 | disposition home or self-care (01) | DRG 773 ==
LOC: ED 21:52 → MS3 23:17 → ICU 08-23 06:59
PROVIDERS: Internal Medicine; Admitting Provider Hospitalist; Emergency Provider Emergency Medicine
DX: F10.231 Alcohol dependence with withdrawal delirium (principal); F11.23 Opioid dependence with withdrawal; B18.2 Chronic viral hepatitis C; K70.10 Alcoholic hepatitis without ascites; F15.10 Other stimulant abuse, uncomplicated; F41.9 Anxiety disorder, unspecified; F17.200 Nicotine dependence, unspecified, uncomplicated; I10 Essential (primary) hypertension; Y90.2 Blood alcohol level of 40-59 mg/100 ml
CPT/HCPCS: 36415; 80053; 80307; 82077; 85025; 85610; 86703; 86803; 94762; 99284; J7050; A4216; J2405